=== PATIENT | male | born 1965 | race Caucasian/White ===

== ENCOUNTER 2021-11-29 16:27 | Outpatient (REF) | payer BC, SELFPAY ==
--- NOTE | ~2021-11-29 | XR_ITS ---
EXAMINATION: XR SHOULDER, LEFT CLINICAL INFORMATION: Pain. COMPARISON: None TECHNIQUE: AP external rotation, Grashey, scapular Y, and axillary views of the left shoulder. FINDINGS: The bones and soft tissues are normal. No fracture. Glenohumeral and acromioclavicular alignment is anatomic with normal joint space. No abnormal soft tissue calcifications. XR/XR shoulder LT min 2V IMPRESSION: Normal left shoulder.
== END 2021-11-29 16:28 | disposition home or self-care (01) ==
LOC: HO.XRAY 16:27
PROVIDERS: PCP Internal Medicine; Visit Provider Internal Medicine
DX: M25.512 Pain in left shoulder (principal)
CPT/HCPCS: 73030

== ENCOUNTER 2021-12-22 16:10 | Outpatient (REF) | payer BC, SELFPAY ==
--- NOTE | ~2021-12-22 | MR_ITS ---
EXAMINATION: MRI SHOULDER WITHOUT CONTRAST, LEFT CLINICAL INFORMATION: Left shoulder pain with decreased range of motion. COMPARISON: Left shoulder radiographs dated 11/29/2021. TECHNIQUE: Multisequence MR imaging of the left shoulder was obtained without contrast on a high-field strength scanner. FINDINGS: ROTATOR CUFF: Mild supraspinatus and infraspinatus tendinosis. Bursal surface fraying/partial tearing of the junctional fibers measuring approximately 1.5 x 1.3 cm (AP x ML). Subscapularis tendinosis with distal articular surface fraying/partial tearing measuring 1.6 cm in ML dimension. No full-thickness rotator cuff tendon tear. No muscle atrophy or fatty infiltration. BICEPS: Intact. CORACOACROMIAL ARCH: The undersurface of the acromion is curved with lateral downsloping. Xrco-hu-dogivcmq acromioclavicular osteoarthritis. Trace fluid and edema within the subacromial subdeltoid bursa consistent with mild bursitis. LABRUM/CAPSULE: No displaced labral tear. Mild thickening and edema of the anteroinferior joint capsule which can be seen in the setting of adhesive capsulitis. GLENOHUMERAL JOINT/MARROW: No acute osseous injury. Grossly intact articular cartilage. Small joint effusion. MR/MR shoulder LT wo con IMPRESSION: 1. Mild supraspinatus and infraspinatus tendinosis with bursal surface fraying/partial tearing of the junctional fibers. Subscapularis tendinosis with distal articular surface fraying/partial tearing. No full-thickness rotator cuff tendon tear. 2. Xppk-pk-reyencyt acromioclavicular osteoarthritis with lateral downsloping. 3. Mild subacromial subdeltoid bursitis. 4. Small glenohumeral joint effusion. 5. Mild thickening and edema of the anteroinferior joint capsule which can be seen in the setting of adhesive capsulitis.
== END 2021-12-22 16:11 | disposition home or self-care (01) ==
LOC: HO.MRI 16:10
PROVIDERS: Visit Provider Internal Medicine
DX: M25.512 Pain in left shoulder (principal)
CPT/HCPCS: 73221

== ENCOUNTER 2022-02-28 08:00 | Outpatient (RCR) | payer BC, SELFPAY | END 2022-03-05 09:28 | disposition home or self-care (01) | LOC: HO.PTCHIC 08:00 | PROVIDERS: PCP Internal Medicine; Visit Provider Internal Medicine | DX: M25.512 Pain in left shoulder (principal) | CPT/HCPCS: 97110; 97140; 97161 ==

== ENCOUNTER 2022-03-19 15:35 | Outpatient (REF) | payer BC, SELFPAY ==
[2022-03-19 16:47] LABS: Influenza A PCR NEGATIVE (Negative); Influenza B PCR NEGATIVE (Negative); Resp Syncy Virus RNA Qual PCR NEGATIVE (Negative); SARS COV2 PCR INHOUSE NEGATIVE (Negative)
== END 2022-03-19 15:36 | disposition home or self-care (01) ==
LOC: HO.LNP 15:35
PROVIDERS: Visit Provider Internal Medicine
DX: Z20.822 Contact with and (suspected) exposure to COVID-19 (principal); R05.9 Cough, unspecified
CPT/HCPCS: 0241U

== ENCOUNTER 2022-03-20 16:36 | Outpatient (REF) | payer BC, SELFPAY ==
--- NOTE | ~2022-03-20 | XR_ITS ---
EXAMINATION: XR CHEST CLINICAL INFORMATION: Cough COMPARISON: 05/14/2016 TECHNIQUE: 2 views of the chest were obtained. FINDINGS: Lungs are well expanded. Although there appears to be a small hazy opacity in the right upper lobe projecting over the right anterior third rib, there is a questionable similar abnormality on the remote comparison exam from 05/14/2016. Otherwise, lungs are unremarkable. No evidence of pulmonary mass or pleural effusion. Cardiac silhouette is normal in size. The hilar contours are normal. Multilevel osteophyte an/or enthesophyte formation of the thoracic spine. No suspicious bone lesions. XR/XR chest 2V IMPRESSION: There is an equivocal finding of minimal hazy opacity in the right upper lung, possibly artifactual. No overt pneumonia. Interestingly, there is a similar questionable abnormality on the remote comparison from 05/14/2016. If an unexplained cough persists, chest CT follow-up would be helpful for further evaluation.
== END 2022-03-20 16:37 | disposition home or self-care (01) ==
LOC: HO.XRAY 16:36
PROVIDERS: PCP Internal Medicine; Visit Provider Internal Medicine
DX: R05.9 Cough, unspecified (principal); R06.89 Other abnormalities of breathing; R06.2 Wheezing
CPT/HCPCS: 71046

== ENCOUNTER 2022-05-15 11:47 | Outpatient (REF) | payer BC, SELFPAY ==
[2022-05-15 13:38] LABS: MANUAL DIFF FLAG NO
[2022-05-15 13:43] LABS: Basophils Absolute Auto 0.1 X10*3/uL (0.0-0.2); Basophils Percent Auto 0.7 % (0-2); Eosinophils Absolute Auto 0.1 X10*3/uL (0.0-0.4); Eosinophils Percent Auto 0.8 % (0-4); Hematocrit 40.5 % (42.0-52.0); Hemoglobin 13.8 g/dl (14.0-18.0); Imm Gran Abs Auto 0.03 X10*3/uL (0.00-0.03); Imm Gran Pct Auto 0.4 % (0.0-0.4); Lymphocytes Absolute Auto 1.9 X10*3/uL (1.2-4.9); Lymphocytes Percent Auto 25.7 % (20-40); Mean Corpuscular HGB Conc 34.1 g/dl (31.0-36.0); Mean Corpuscular Hemoglobin 30.3 pg (27.0-33.0); Mean Platelet Volume 9.7 fL (9.4-12.4); Monocytes Absolute Auto 0.5 X10*3/uL (0.1-1.2); Monocytes Percent Auto 6.6 % (2-11); Neutrophils Percent Auto 65.8 % (45-73); Platelet Count 257 X10*3/uL (160-400); Red Blood Count 4.55 X10*6/uL (4.60-5.80); Red Cell Distribution Width 12.5 % (11.0-16.0); White Blood Count 7.5 X10*3/uL (4.8-10.8)
[2022-05-15 13:57] LABS: Appearance Urine Clear; Color Urine Yellow; Glucose Urine UA Negative (Negative); Leukocyte Esterase Urine Negative (Negative); Nitrite Urine Negative (Negative); PH 6.5 (5.0-9.0); Specific Gravity - Urine 1.015 (1.005-1.025); Urine Blood Negative (Negative); Urine Ketones Negative (Negative); Urine Protein Negative (Neg-Trace)
[2022-05-15 14:27] LABS: Alanine Aminotransferase 25 U/L (0-40); Albumin Level 4.4 g/dL (3.5-5.0); Alkaline Phosphatase 66 U/L (39-117); Anion Gap 19 (12-20); Aspartate Amino Transferase 23 U/L (5-37); Bilirubin Total 0.7 mg/dL (0.0-1.0); Blood Urea Nitrogen 14 mg/dL (9-16); C Reactive Protein 0.27 mg/dL (< or = 0.50); Calcium 9.7 mg/dL (8.4-10.2); Carbon Dioxide 23 mmol/L (22-29); Chloride 104 mmol/L (96-108); Cholesterol 194 mg/dL; Estimated Glomerular Filt Rate > 60; Glucose Fasting 87 mg/dL (60-99); HDL Cholesterol 53 mg/dL; LDL Cholesterol Calculated 131 mg/dl; Potassium 4.5 mmol/L (3.3-5.1); Sodium 141 mmol/L (135-145); Total Protein 7.4 g/dL (6.5-8.0); Triglycerides 50 mg/dL
[2022-05-15 14:44] LABS: Prostate Specific Antigen Scr 15.12 ng/mL (<0.05-4.0)
== END 2022-05-15 11:48 | disposition home or self-care (01) ==
LOC: HO.10HDL 11:47
PROVIDERS: Visit Provider Internal Medicine
DX: Z00.00 Encounter for general adult medical examination without abnormal findings (principal); Z12.5 Encounter for screening for malignant neoplasm of prostate
CPT/HCPCS: 36415; 80053; 80061; 81003; 84153; 85025; 86140

== ENCOUNTER 2022-05-17 15:45 | Outpatient (REF) | payer BC, SELFPAY ==
[2022-05-17 18:21] LABS: PSA,Total (Free>4and<10) 14.69 ng/mL (0.00-4.00)
== END 2022-05-17 15:46 | disposition home or self-care (01) ==
LOC: HO.LAB 15:45
PROVIDERS: PCP Internal Medicine; Visit Provider Internal Medicine
DX: R97.20 Elevated prostate specific antigen [PSA] (principal); Z12.5 Encounter for screening for malignant neoplasm of prostate
CPT/HCPCS: 36415; 84153

== ENCOUNTER → 2022-11-14 15:10 | Outpatient (REF) | payer BC, SELFPAY ==
--- NOTE | 2022-11-14 15:17 | ECG_ITS ---
Test Reason : preop Blood Pressure : / mmHG Vent. Rate : 063 BPM Atrial Rate : 063 BPM P-R Int : 176 ms QRS Dur : 090 ms QT Int : 412 ms P-R-T Axes : 004 007 009 degrees QTc Int : 421 ms Normal sinus rhythm Normal ECG No previous ECGs available Referred By: Abelino Stoll Electronically Signed By:Edwin Ruiz
== END ==
LOC: HO.CARD 15:10
PROVIDERS: PCP Internal Medicine; Visit Provider Internal Medicine
DX: Z01.810 Encounter for preprocedural cardiovascular examination (principal)
CPT/HCPCS: 93005

== ENCOUNTER → 2022-11-14 15:17 | Outpatient (BNV) | payer BC, SELFPAY | PROVIDERS: PCP Internal Medicine; Visit Provider Internal Medicine Cardiovascular Disease | DX: Z01.818 Encounter for other preprocedural examination (principal) | CPT/HCPCS: 93010 ==

== ENCOUNTER 2023-04-30 07:17 | Day surgery (SDC) | payer BC, SELFPAY ==
[2023-04-26 14:13] VITALS: BMI 31.0
--- NOTE | 2023-04-29 08:25 | P.CONAN_ITS ---
Documented by User: Tricia Lynne NP 04/29/23 08:25 HPI - Anesthesia Eval Consult details Narrative: 57yo M for Upper Endoscopy and Colonoscopy [facility] Past Medical History Medical History Prostate cancer Asthma GERD (gastroesophageal reflux disease) Surgical History Surgical History History of facial surgery Hx of prostatectomy H/O colonoscopy Social History Social History Household Members: Spouse Patient Tobacco Use Status: Never used Tobacco Use of substances other than those prescribed or required for medical reasons: No Are you DNR?: No Advance Directives: No Advance Directives Information Provided: Yes Meds Allergies Allergy/AdvReac Type Severity Reaction Status Date / Time Seasonal Allergies Allergy Intermediate Itchy Eyes Verified 04/26/23 14:16 Home Medications Medication Instructions Recorded Confirmed Last Taken Type fluticasone 100 mcg-salmeterol 50 1 ea inhalation BID 04/26/23 04/26/23 Unknown History mcg/dose blistr powdr for inhalation (Wixela Inhub) loratadine 10 mg tablet (Claritin) 10 mg PO DAILY 04/26/23 04/26/23 Unknown History oxybutynin chloride 5 mg tablet 5 mg PO BEDTIME 04/26/23 04/26/23 Unknown History tadalafil 5 mg tablet 5 mg PO DAILY 04/26/23 04/26/23 Unknown History Exam Height,Weight and Vital Signs: Height 5 ft 9.5 in Weight 96.615 kg Assessment and Plan Assessment Anesthesia Assessment: Chart Reviewed Documented by User: Starla Araujo MD 04/30/23 09:14 [facility] Active Problems Active Problems: Asthma. Uses inhaler daily GERD. Uses otc meds daily. Controls symptoms Tadalafil- last use 4 days ago H/o heme positive stool Past Medical History Medical History Prostate cancer Asthma GERD (gastroesophageal reflux disease) Family History Family history of problems with anesthesia: No Surgical History Surgical History History of facial surgery Hx of prostatectomy H/O colonoscopy History of Problems with Anesthesia: No Social History Social History Household Members: Spouse Patient Tobacco Use Status: Never used Tobacco Use of substances other than those prescribed or required for medical reasons: No Are you DNR?: No Advance Directives: No Advance Directives Information Provided: Yes Meds Allergies Allergy/AdvReac Type Severity Reaction Status Date / Time Seasonal Allergies Allergy Intermediate Itchy Eyes Verified 04/26/23 14:16 Home Medications Medication Instructions Recorded Confirmed Last Taken Type fluticasone 100 mcg-salmeterol 50 1 ea inhalation BID 04/26/23 04/26/23 Unknown History mcg/dose blistr powdr for inhalation (Nicholas Thompson) loratadine 10 mg tablet (Claritin) 10 mg PO DAILY 04/26/23 04/26/23 Unknown History oxybutynin chloride 5 mg tablet 5 mg PO BEDTIME 04/26/23 04/26/23 Unknown History tadalafil 5 mg tablet 5 mg PO DAILY 04/26/23 04/26/23 Unknown History Exam Height,Weight and Vital Signs: Height 5 ft 9.5 in Weight 96.615 kg Vital Signs Temp Pulse Resp BP Pulse Ox O2 Del Method 04/30/23 08:24 99.0 F 79 16 131/83 95 Room Air Narrative Narrative: 12 lead ekg 11/2022: NSR. 63 Airway Mallampati Class: II TM Dist: >3cm Neck ROM: Full Loose/Missing/Broken Teeth: No (Denies broken, loose, missing teeth) Heart: RRR Lungs: CTAB Assessment and Plan Assessment Anesthesia Assessment: Anesthesia Plan Discussed Final Anesthetic Review Family History of Problems with Anesthesia: No History of Problems with Anesthesia: No NPO: Yes ASA Class: II Final Preanesthetic Review: No Changes in Pt Med Stat, Meds/Allgs Chart Reviewed, Consent Obtained/Reviewed and Anes Risks/Benef Reviewed Patient Risk: Low Procedure Risk: Low Assessment/Block/Sedation in SS: Assess/Block/Sedation-SS Anesthetic Plan Anesthetic Plan: TIVA Disposition: Standard PACU
--- OUTSIDE RECORDS SUMMARY | 2023-04-30 07:20 | XMS_ITS | Patient Health Record ---
Author Name Unknown Organization [facility] Address [address] [place] [address] Care Team Providers Care Rainbow Trout Farm Manager Name Role Phone Abelino Stoll MD Primary Care Provider Micah Hull Jr Unavailable ALLERGIES Allergen (clinical drug ingredient) Drug/Non Drug Allergy documented on EMR Reaction Allergy Type Onset Date Status seasonal (uncoded) Unknown Allergy A ctive REASON FOR REFERRAL No Information MEDICATIONS Medication SIG (Take, Route, Frequency, Duration) Notes Start Date End Date Status MiraLax (colon prep) 17 GM/SCOOP mixed with Gatorade or Crystal Light Orally begin at 5:00 p.m. the day before the procedure for 1 day 03/25/2023 Active Tadalafil 5 MG Oral for 30 Act isa Advair Diskus 250-50 MCG/DOSE 1 puff Inhalation Twice a day/PRN Active Claritin 10 MG 1 tablet Orally Once a day for 30 day(s) Active IMMUNIZATIONS Vaccine Route Administration Date Status Comme nts Influenza Unknown 03/08/2023 Administered SOCIAL HISTORY Sex Assigned At : Social History Observation Description Sex Assigned At Unknown Alcohol Screen Question Answer Notes Did you have a drink contain ing alcohol in the past year? Yes How often did you have a dri nk containing alcohol in the past year? 4 or more times a week (4 points) How many drinks did you have on a typical day when you were drinking in the past year? 3 or 4 drinks (1 point) How often did you have 6 or more drinks on one occasion in the past year? Never (0 point) Points 5 Interpretation Positive PROBLEMS Problem Type ICD Code Onset Dates Problem Status W/U Status Risk SNOMED Code Notes Problem Heme positive stool (R19.5) Active confirmed 62315589 Problem Change in bowel movement (R19.8) Active confirmed 53246975 Problem Gastroesophageal reflux disease, unspecified whether esophagitis present (K21.9) Active confirmed 850711333 Encounters Encounter Location Date Provider Diagnosis [facility] Outpatient [address] [place] [phone] 04/30/2023 Micah Baxter Jr [facility] [address] [place] [phone] 06/06/2022 Micah Baxter Jr [facility] [address] [place] [phone] 08/24/2022 Micah Baxter Jr [facility] [address] [place] [phone] 03/25/2023 Micah Baxter Jr Heme positive stool R19.5 ; Change in bowel movement R19.8 and Gastroesophageal reflux disease, unspecified whether esophagitis present K21.9 [facility] [address] [place] [phone] 05/18/2022 Micah Baxter Jr [facility] [address] [place] [phone] 05/31/2022 Micah Baxter Jr [facility] [address] [place] [phone] 06/06/2022 Micah Baxter Jr ASSESSMENTS Encounter Date Diagnosis Assessment Notes Treatment Notes Treatment Clinical Notes 03/25/2023 Heme positive stool (ICD-10 - R19.5) Endoscopy material was printed 03/25/2023 Change in bowel movement (ICD-10 - R19.8) 03/25/2023 Gastroesophageal ref lux disease, unspecified whether esophagitis present (ICD-10 - K21.9) PLAN OF TREATMENT Future Test Test Name Order Date COLONOSCOPY 08/05/2014 UPPER GI ENDOSCOPY 03/25/2023 COLONOSCOPY 03/25/2023 Next Appt Details Provider Name:Micah shipley Jr, 04/30/2023 11:20:00 AM, [address] [place] [address] , [place], [place], [phone], Insurance Providers Payer Name Payer Address Payer Phone Subscriber Number Group Number Insured Name Patient Relationship to Insured Coverage Start Date Coverage End Date [facility] [address] [place], [place] [id number] [phone] [id number] AWA JACOBS Self - patient is the insured MEDICAL (GENERAL) HISTORY Medical History History ICD Code Asthma Gastroesophageal reflux disease Colonoscopy 10/06/14, hyperpla stic polyps, five-year followup for family history. Prostate cancer Surgical History Surgery Date(Month/Year) Repair of facial bone fracture Prostatectomy 12/2022
[2023-04-30 08:21] VITALS: BMI 29.9
[2023-04-30 08:24] VITALS: BP 131/83; PULSE 79; RESP 16; TEMP 37.2; O2SAT 95
[2023-04-30] MEDS: Lactated Ringers 1,000 ML 100 ML IVCONT (08:37)
--- NOTE | 2023-04-30 09:10 | MHC.SHP ---
Pre-Procedural Eval Section A Date of Service: 04/30/23 Section B Chief Complaint: Other specified symptoms and signs involving the d Details of Present Illness: see H&P no changes Relevant Family History (Specify if Yes): No Relevant Social History: None Present Medications: see Short Stay Collaborative assessment Medical History: No relevant PMH History of Previous Operations: No relevant previous surgery Allergies: Allergies Allergy/AdvReac Type Severity Reaction Status Date / Time Seasonal Allergies Allergy Intermediate Itchy Eyes Verified 04/26/23 14:16 Review of Systems Sugical H&P ROS: Negative: Constitution, Cardiovascular, Respiratory, Neurological, Psychiatric, Hem-Onc, Allergic/Immunologic, Gastrointestinal, Genitourinary, Musculoskeletal, Integumentary, Endocrine and Eyes/Ears/Nose/Throat Exam Surgical H&P Exam: Normal: HEENT, Normal: Heart, Normal: Lungs, Normal: Extremities, Normal: Abdomen, Normal: Skin and Normal: Neurological Plan Diagnosis/Plan: Unchanged I have reviewed the history and physical and performed a pertinent physical examination on my patient. No changes have occurred unless specified. Time Spent With Patient Time: Total time managing care of this patient today ____ minutes.
[2023-04-30 09:52] VITALS: BP 103/72; PULSE 80; RESP 12; TEMP 36.3; O2SAT 97
[2023-04-30 10:07] VITALS: BP 112/85; PULSE 69; RESP 12; TEMP 36.3; O2SAT 97
--- NOTE | 2023-04-30 10:12 | OP_ITS ---
DATE OF SERVICE: 04/30/2023 SURGEON: Micah Baxter MD INDICATIONS: Gastroesophageal reflux disease, change in bowels, and heme-positive stool. PREOPERATIVE DIAGNOSIS: POSTOPERATIVE DIAGNOSIS: PROCEDURE PERFORMED: ESTIMATED BLOOD LOSS: COMPLICATIONS: ANESTHESIA: Monitored anesthesia care. ASSISTANTS: SPECIMENS: PROCEDURES PERFORMED: Upper endoscopy with biopsy, colonoscopy to the terminal ileum. DESCRIPTION OF PROCEDURE: A history and physical were performed. The risks and benefits of the procedure were explained to the patient. Informed consent was obtained. The patient was placed in the left lateral decubitus position. The Olympus video gastroscope was introduced into the esophagus, stomach, and duodenum. Examination was performed, and the scope was removed. He tolerated the procedure well and was repositioned for colonoscopy. A digital rectal exam was performed and was found to be normal. The Olympus pediatric video colonoscope was introduced into the rectum and advanced to the cecum. The cecum was identified by transillumination, palpation, and identification of ileocecal valve. Examination was performed, and the scope was removed. He tolerated both procedures well, and was returned to recovery in stable condition. FINDINGS: Upper endoscopy: 1. Esophagus. There was an approximately 2 cm area of possible Jacinto's esophagus extending from the EG junction at 39 cm to 37 cm. There were no raised lesions or ulcerated areas. Biopsies were obtained from 39 and 37 cm. 2. Stomach: Showed no evidence of masses, ulcers, or polyps. Antral biopsies were obtained to evaluate for H. pylori. 3. Duodenum, the bulb and 2nd portion were normal. Colonoscopy: The terminal ileum was examined and appeared normal. The visualized colonic mucosa was normal. The quality of the prep was good. There were no polyps identified. There was mild sigmoid diverticulosis. Retroflexed examination showed some moderate-sized internal hemorrhoids. IMPRESSION: 1. Gastroesophageal reflux disease, rule out Jacinto's esophagus. 2. Normal colonoscopy. RECOMMENDATIONS: 1. Follow up the biopsy results. 2. Screening colonoscopy is recommended in 10 years for average risk individuals. MD YAAKOV Hong/TRAVIS / [phone]
== END 2023-04-30 10:30 | disposition home or self-care (01) ==
PROVIDERS: PCP Internal Medicine; Visit Provider Internal Medicine Gastroenterology
PROC: (CPT 43239; principal; 2023-04-30 09:10)
DX: K21.9 Gastro-esophageal reflux disease without esophagitis (principal); K57.30 Diverticulosis of large intestine without perforation or abscess without bleeding; K64.8 Other hemorrhoids; Z83.719 Family history of colon polyps, unspecified; R19.5 Other fecal abnormalities; R19.8 Other specified symptoms and signs involving the digestive system and abdomen
CPT/HCPCS: 43239; 45378; 88305; 88313; 88342; J2405; J2704; J3010

== ENCOUNTER 2024-09-14 09:30 | Outpatient (AMB) | payer BC, SELFPAY ==
--- NOTE | 2024-09-14 09:33 | A.OFFPC_ITS ---
Vital Signs 09/14/24 09:37 Height 5 ft 11 in Weight 101.151 kg BMI 31.1 BP 138/86 Respiration 16 Pulse 74 Pulse Source Pulse Oximeter Temp 98.2 F Temp Source Temporal Artery Scan Pulse Oximetry (%) 97 Oxygen Delivery Method Room Air Intake Visit Reasons: rx refill Absorption And Adsorption Engineer Required: No Accompanied by: Self / Same As Patient Allergies Seasonal Allergies Allergy (Intermediate, Verified 09/14/24 09:33) Itchy Eyes Medication List - Last Reconciled 09/14/24 by NERY Collado albuterol sulfate 90 mcg/actuation 1 inh inhalation QID PRN fluticasone propion-salmeterol 100-50 mcg/dose (Wixela Inhub) 1 ea inhalation BID loratadine (Claritin) 10 mg PO DAILY tadalafil 5 mg PO DAILY HPI HPI Comments 2 History of Present Illness Details 59-year-old male with history of prostat e cancer, asthma, GERD presents to the office today for management of chronic conditions and to establish care. Prostate cancer- s/p total prostatectomy 2022. Following with [facility] 4 times yearly. Last 0.03. Interductal carcinoma. Request records Asthma- stable on wixela inhaler. No recent exacerbation. Rare albuterol use. GERD- controlled. Takes omeprazole Hyperlipidemia-last LDL 131. Not on statin Concerns: None Health maintenance: Last screening colonoscopy 04/2023, 10 year follow-up. Dr. Sahil REGAN-Dana-Farber following ROS: General: No fevers, malaise, unintentional weight loss HEENT: No blurred vision, diplopia. No sore throat, nasal congestion, rhinorrhea, sinus pain, ear pain Cardiovascular: No chest pain, palpitations, or leg edema Respiratory: No shortness of breath, wheezing, cough GI: No abdominal pain, nausea, vomiting, diarrhea, constipation, melena, hematochezia : No dysuria, hematuria, increased urinary frequency, decreased urinary output MSK: No myalgia, back pain Neuro: No headaches, weakness, paresthesias Skin: No rashes or lesions EXAM: Constitutional - Awake and Alert, No apparent distress Eyes - PERRL Cardiovascular - S1S2, RRR, No edema Respiratory - Normal lung expansion, Normal respiratory effort, No respiratory distress, CTA bilaterally Extremities - no calf tenderness bilaterally, no swelling Skin - Warm/Dry Neurological - Alert & oriented Psychological - Appropriate affect PFSH Medical History (Updated 09/14/24 @ 09:55 by NERY Collado) Hyperlipidemia Prostate cancer Asthma GERD (gastroesophageal reflux disease) Surgical History (Updated 09/11/24 @ 15:42 by Jocy Tapia) History of facial surgery Hx of prostatectomy H/O colonoscopy (~04/30/23) Social History Household Members: Spouse Patient Tobacco Use Status: Never used Tobacco Questionnaire PHQ-9 Over the last 2 weeks, how often have you been bothered by any of the following problems? 1. Little interest or pleasure in doing things: not at all 2. Feeling down, depressed, or hopeless: not at all 3. Trouble falling or staying asleep, or sleeping too much: more than half the days 4. Feeling tired or having little energy: several days 5. Poor appetite or overeating: more than half the days 6. Feeling bad about yourself - or that you are a failure or have let yourself or your family down: not at all 7. Trouble concentrating on things, such as reading the newspaper or watching television: not at all 8. Moving or speaking so slowly that other people could have noticed. Or the opposite - being so fidgety or restless that you have been moving around a lot more than usual: not at all 9. Thoughts that you would be better off or of hurting yourself in some way: not at all Total score: 5 Source: Developed by Drs. Kenny Soriano, Sheree Randle, Hernan Novak and colleagues, with an educational blaire from [employer]. Thrive Questionnaire Date Thrive assessed: 09/14/24 I am a: Patient What is your living situation today?: I have a steady place to live Within the past 12 months, did the food you bought not last and you didn't have the money to get more?: Never true Within the past 12 months, did you worry whether your food would run out before you got money to buy more?: Never true Do you have trouble paying for medicines?: No Do you have trouble getting transportation to medical appointments?: No Do you have trouble paying your heating and electricity bill?: No Do you have trouble taking care of your child, family member or friend?: No Do you have trouble with day-to-day activities such as bathing, preparing meals, shopping, managing finances, etc.?: No Are you currently unemployed and looking for a job?: No Are you interested in more education?: No Please select the resources that you would like help with: None THRIVE Score: 0 BALDEMAR-7 AMB Questionnaire BALDEMAR-7 Date BALDEMAR - 7 assessed: 09/14/24 Feeling nervous, anxious, or on edge: 0 = Not at all Not being able to stop or control worryin = Not at all Worrying too much about different things: 0 = Not at all Trouble relaxin = Not at all Being so restless that it is hard to sit still: 0 = Not at all Becoming easily annoyed or irritable: 0 = Not at all Feeling afraid as if something awful might happen: 0 = Not at all Total BALDEMAR-7 score (0-4 normal; 5-9 mild; 10-14 moderate; 15-21 severe): 0 Source: Developed by Drs. Kenny Soriano, Sheree Randle, Hernan Novak and colleagues, with an educational blaire from [employer]. Physical exam (Primary Care) Vital Signs: Last Vital Signs Temp 98.2 F 09/14/24 09:37 Pulse 74 09/14/24 09:37 Resp 16 09/14/24 09:37 BP 138/86 09/14/24 09:37 Pulse Ox 97 09/14/24 09:37 Oxygen Delivery Method Room Air 09/14/24 09:37 BMI result Body Mass Index 31.1 Tobacco/Smoking Status: Tobacco use Status Patient Tobacco Use Status Never used Tobacco 09/14/24 09:40 PHQ-9: PHQ-9 Score PHQ-9: Total score 5 09/14/24 10:00 Thrive Assessment: Date of Thrive Assessment Date Thrive assessed 09/14/24 09/14/24 10:00 Coding Level of Care Code New Pt Level 4 (35525) Complex EM visit Add On G2211 Diagnoses Asthma J45.909 Prostate cancer C61 Hyperlipidemia E78.5 GERD (gastroesophageal reflux disease) K21.9 Assessment & Plan Assessment & Plan (1) Asthma: Code(s): J45.909 - Unspecified asthma, uncomplicated Category: Medical Plan: Controlled. Continue Wixela, albuterol p.r.n. (2) Prostate cancer: Code(s): C61 - Malignant neoplasm of prostate Category: Medical Plan: Records to be requested from [facility]. Appears to be in remission with last PSA nearly undetectable. Continue following with Oncology as scheduled (3) Hyperlipidemia: Code(s): E78.5 - Hyperlipidemia, unspecified Category: Medical Plan: Lipid panel ordered. Diet low in saturated fat and highly processed foods recommended (4) GERD (gastroesophageal reflux disease): Code(s): K21.9 - Gastro-esophageal reflux disease without esophagitis Category: Medical Plan: Stable. Continue omeprazole Plan Follow-up in 1 year for annual physical exam. Labs to be completed as below. Continue medications as prescribed. Orders: Orders Basic Metabolic Panel Today C61 - Malignant neoplasm of prostate, E78.5 - Hyperlipidemia, unspecified, J45.909 - Unspecified asthma, uncomplicated, K21.9 - Gastro-esophageal reflux disease without esophagitis Hemoglobin A1c Today C61 - Malignant neoplasm of prostate, E78.5 - Hyperlipidemia, unspecified, J45.909 - Unspecified asthma, uncomplicated, K21.9 - Gastro-esophageal reflux disease without esophagitis Lipid Panel Today C61 - Malignant neoplasm of prostate, E78.5 - Hyperlipidemia, unspecified, J45.909 - Unspecified asthma, uncomplicated, K21.9 - Gastro- esophageal reflux disease without esophagitis Liver Panel Today C61 - Malignant neoplasm of prostate, E78.5 - Hyperlipidemia, unspecified, J45.909 - Unspecified asthma, uncomplicated, K21.9 - Gastro- esophageal reflux disease without esophagitis Medications: New tadalafil 5 mg PO DAILY 14 tabs 5RF albuterol sulfate 90 mcg/actuation 1 inh inhalation QID PRN 8.5 grams 0RF shortness of breath or wheezing Refilled fluticasone propion-salmeterol 100-50 mcg/dose (Wixela Inhub) 1 ea inhalation BID 180 ea 2RF
[2024-09-14 09:37] VITALS: BP 138/86; PULSE 74; RESP 16; TEMP 36.8; O2SAT 97; BMI 31.1
--- OUTSIDE RECORDS SUMMARY | 2024-09-14 10:05 | XMS_ITS ---
Author Organization [facility] Address [address] [place] [address] Care Team Providers Care Cook Station Name Role Phone Abelino Stoll MD Primary Care Provider Unavaila Micah Smalls Jr REASON FOR VISIT Patient presents today for barretts esophagus Encounters Encounter Location Date Provider Diagnosis [facility] [address] [place] [id number] 09/18/2023 Micah Baxter Jr Plan Of Treatment Next Appt Details Provider Name:Micah shipley Jr, 01/04/2025 09:00:00 AM, [address] [place] [address], [address], [place], [address], Progress Notes * ZULEIKAAMY AWADOB:1965 (59 yo M)Acc No.[id number]:09/18/2023 Progress Notes Patient:?REYNALDO AWA Provider:?Micha Baxter MD :1965???Age:58 Y???Sex:Male Emmett e:09/18/2023 Address:[address] [place] [address] [phone] Pcp:Abelino Stoll MD Subjective: * Chief Complaints: * ???1. Patient presents today for barretts esophagus. * Medical History:? Objective: * Vitals:? Assessment: Plan: * Treatment: * * The named appointment provid er may or may not be the originator of this progress note, and it is not deemed complete until electronically signed by the appointment provider. Sign off status: Pending * Provider:?Micah Baxter MD Date:?0 09/18/2023 Generated for Natalya amaral/Neva/Jjitting on:?09/14/2024 10:05 AM EDT
== END 2024-09-14 10:02 | disposition home or self-care (01) ==
LOC: HO.HMCHD 09:30
PROVIDERS: PCP Internal Medicine; Visit Provider Physician Assistant
DX: J45.909 Unspecified asthma, uncomplicated (principal); C61 Malignant neoplasm of prostate; E78.5 Hyperlipidemia, unspecified; K21.9 Gastro-esophageal reflux disease without esophagitis

== ENCOUNTER 2024-09-14 10:06 | Outpatient (REF) | payer BC, SELFPAY ==
[2024-09-14 13:42] LABS: Estimated Average Glucose 103 mg/dL; Hemoglobin A1C 119.2935 umol/L; Hemoglobin A1c % 5.2 % (<6.0); Total Hemoglobin (HGBA1C) 3523.7419 umol/L
[2024-09-14 13:55] LABS: Alanine Aminotransferase 30 U/L (0-40); Albumin Level 4.4 g/dL (3.5-5.0); Alkaline Phosphatase 73 U/L (39-117); Anion Gap 11 (12-20); Aspartate Amino Transferase 24 U/L (5-37); Bilirubin Direct 0.2 mg/dL (0.0-0.5); Bilirubin Total 0.5 mg/dL (0.0-1.0); Blood Urea Nitrogen 13 mg/dL (9-16); Calcium 9.4 mg/dL (8.4-10.2); Carbon Dioxide 29 mmol/L (22-29); Chloride 105 mmol/L (96-108); Cholesterol 171 mg/dL (<200); Estimated Glomerular Filt Rate > 60; Glucose Random 107 mg/dL (60-115); HDL Cholesterol 54 mg/dL (>40); LDL Cholesterol Calculated 103 mg/dL (<100); Potassium 4.5 mmol/L (3.3-5.1); Sodium 140 mmol/L (135-145); Total Protein 7.5 g/dL (6.5-8.0); Triglycerides 73 mg/dL (<150)
== END 2024-09-14 10:07 | disposition home or self-care (01) ==
LOC: HO.10HDL 10:06
PROVIDERS: Visit Provider Physician Assistant
DX: C61 Malignant neoplasm of prostate (principal); K21.9 Gastro-esophageal reflux disease without esophagitis; J45.909 Unspecified asthma, uncomplicated; E78.5 Hyperlipidemia, unspecified; Z13.1 Encounter for screening for diabetes mellitus
CPT/HCPCS: 36415; 80048; 80061; 80076; 83036

== ENCOUNTER 2024-12-16 15:01 | Outpatient (AMB) | payer BC, SELFPAY ==
--- OUTSIDE RECORDS SUMMARY | 2023-09-18 06:40 | XMS_ITS ---
Author Organization [facility] Address [address] [place] [address] Care Team Providers Care Cupola Patcher Helper Name Role Phone Jerman (RETIRED) Abelino BOATENG Primary Care Provide r Micah Hernandez Jr [phone] REASON FOR VISIT Patient presents today for barretts esophagus Encounters Encounter Location Date Provider Diagnosis [facility] [address] [place] [address] 09/18/2023 Micah Baxter Jr Plan Of Treatment Next Appt Details Provider Name:Micah shipley Jr, 01/04/2025 09:00:00 AM, [address] [place] [address], [address], [place], [address], Progress Notes * AWA JACOBSDOB:1965 (59 yo M)Acc No.[id number]:09/18/2023 Progress Notes Patient: AWA RUSSELL Provider: Yumi Baxter MD :1965 A ge:58 Y S ex:Male Date:09/18/2023 Address:[address] [place] [address] [id number] Pcp:Abelino Stoll (RETIRED )MD Subjective: * Chief [...] provider. Sign off status: Pending * Provider: Yumi Baxter MD Date: 0 09/18/2023 Generated for Natalya amaral/Neva/Mateus on: 0 12/16/2024 06:07 PM EDT
--- NOTE | 2024-12-16 15:09 | A.OFFPC_ITS ---
Vital Signs 12/16/24 15:14 Height 5 ft 11 in Weight 99.337 kg BMI 30.5 BP 114/86 Respiration 16 Pulse 82 Pulse Source Pulse Oximeter Temp 97.8 F Temp Source Temporal Artery Scan Pulse Oximetry (%) 96 Oxygen Delivery Method Room Air Intake Visit Reasons: Eye complaints General Passenger Agent Required: No Accompanied by: Self / Same As Patient Allergies Seasonal Allergies Allergy (Intermediate, Verified 12/16/24 15:09) Itchy Eyes Medication List - Last Reconciled 12/16/24 by NERY Collado albuterol sulfate 90 mcg/actuation 1 inh inhalation QID PRN fluticasone propion-salmeterol 100-50 mcg/dose (Wixela Inhub) 1 ea inhalation BID loratadine (Claritin) 10 mg PO DAILY sildenafil 100 mg PO DAILY PRN HPI HPI Comments History of Present Illness Details 59-year-old male with history of prostat e cancer, asthma, GERD presents to the office today for management of evaluation accompanied by his Kimberley. Prostate cancer- s/p total prostatectomy 2022. [facility] Last [facility]. Interductal carcinoma. Asthma- stable on wixela inhaler. No recent exacerbation. Rare albuterol use. GERD- controlled. Takes omeprazole Hyperlipidemia-last LDL 106. Not on statin Concerns: About 2 w ago experienced an episode where his eyes were looking in different directions , seeing things in two different barrientos . When covering each of the vision in the contralateral eye was normal. Unclear if there was actually central vision loss. No peripheral vision loss. When walking he states he had to cover one of his eyes. Reports the episode lasted about 5-6 minutes and has not recurred. This was the initial episode. He denies any blurred vision, diplopia, vision loss, pain with EOM. Denies any loss of depth perception. No other focal deficits. No hx CVA or known ROS: General: No fevers, malaise, unintentional weight loss HEENT: see hpi Cardiovascular: No chest pain, palpitations, or leg edema Respiratory: No shortness of breath, wheezing, cough Neuro: No headaches, weakness, paresthesias Skin: No rashes or lesions EXAM: Constitutional - Awake and Alert, No apparent distress Eyes - PERRLA. Lids symmetric, no drooping or swelling. Sclera anticteric, conjunctiva clear. EOMs in tact. Fundoscopic exam- cup to disc ratio appears normal, normal appearing pattern of retinal vessels, no hemorrhage or floaters Cardiovascular - S1S2, RRR, No edema Respiratory - Normal lung expansion, Normal respiratory effort, No respiratory distress, CTA bilaterally Extremities - no calf tenderness bilaterally, no swelling Skin - Warm/Dry Neurological - Alert & oriented x3 Psychological - Appropriate affect PFSH Medical History (Updated 12/16/24 @ 21:24 by NERY Collado) Hyperlipidemia Prostate cancer Asthma GERD (gastroesophageal reflux disease) Surgical History (Updated 09/11/24 @ 15:42 by Jocy Tapia) History of facial surgery Hx of prostatectomy H/O colonoscopy (~04/30/23) Social History Household Members: Spouse Patient Tobacco Use Status: Never used Tobacco Questionnaire Thrive Questionnaire Date Thrive assessed: 09/14/24 BALDEMAR-7 AMB Questionnaire BALDEMAR-7 Date BALDEMAR - 7 assessed: 09/14/24 Source: Developed by Drs. Kenny Soriano, Sheree Randle, Hernan Novak and colleagues, with an educational blaire from [employer]. Physical exam (Primary Care) Vital Signs: Last Vital Signs Temp 97.8 F 12/16/24 15:14 Pulse 82 12/16/24 15:14 Resp 16 12/16/24 15:14 BP 114/86 12/16/24 15:14 Pulse Ox 96 12/16/24 15:14 Oxygen Delivery Method Room Air 12/16/24 15:14 BMI result Body Mass Index 30.5 Tobacco/Smoking Status: Tobacco use Status Patient Tobacco Use Status Never used Tobacco 12/16/24 15:09 Thrive Assessment: Date of Thrive Assessment Date Thrive assessed 09/14/24 12/16/24 15:09 Coding Level of Care Code Est Pt Level 4 (95454) Complex EM visit Add On G2211 Diagnoses Change in vision H53.9 Hyperlipidemia E78.5 Assessment & Plan Assessment & Plan (1) Change in vision: Code(s): H53.9 - Unspecified visual disturbance Category: Medical Plan: No ongoing symptoms. Etiology of symptoms unclear. Given clinical history, appears consistent with sudden onset strabismus in adult with binocular vision disruption. Possibly hemianopsia, but unclear if there was true visual field loss based on pt history. EOMs and visual barrientos in tact on exam. Limited fundoscopic exam without any obvious abnormality. Recommend urgent evaluation with ophthamologist- advised to contact his provider at [facility] and will fax note. MRI brain ordered to evaluate for any cva, masses, or neurological disorder that could have resulted in symptom onset. Will check tsh/free t4 for thyroid eye disease. Referral is placed to neurology. Discussed possibility of TIA. Advised taking baby aspirin and initiating statin (last LDL 106). Pt advised to present to the ED immediately for any recurrence of symptoms. (2) Hyperlipidemia: Code(s): E78.5 - Hyperlipidemia, unspecified Category: Medical Plan: as above Plan Follow up pending results and as scheduled. Orders: Orders MR head/brain wo con Today H50.9 - Unspecified strabismus, H53.47 - Heteronymous bilateral field defects, H53.9 - Unspecified visual disturbance TSH reflex Free T4 Today H50.9 - Unspecified strabismus, H53.9 - Unspecified visual disturbance Referrals Neurology Referral H50.9 - Unspecified strabismus, H53.9 - Unspecified visual disturbance Medications: New atorvastatin (Lipitor) 10 mg PO DAILY 90 tabs 0RF Patient Instructions: MRI ordered and referral to neurology placed- [phone] Contact ophthalmology at [facility] for evaluation of vision changes- strabimus, BVD, ?hemianopsia Should this recur, please go to the ER immediately
[2024-12-16 15:14] VITALS: BP 114/86; PULSE 82; RESP 16; TEMP 36.6; O2SAT 96; BMI 30.5
--- OUTSIDE RECORDS SUMMARY | 2024-12-16 18:08 | XMS_ITS | Clinical Summary ---
Author Organization [facility] Address [address] [place] [phone] Phone Care Team Providers Care Landscaping Crew Leader Name Role Phone Abelino Stoll MD Primary Care Provider Self-Referred, Patient Unavailable Unavailab le Allergies Active Allergy Reactions Criticality Noted Date Comments Animal Dander 01/10/2023 Hay Fever And Allergy Relief 024 House Dust 09/03/2023 Pollen Extracts 09/03/2023 Ragweed 01/10/2023 Medications LORATADINE ORAL Claritin Liqui-Gel Active fluticasone propion-salmet Kris (ADVAIR DISKUS) 100-50 mcg/dose DISKUS 01/07/20 20 Active tadalafiL (CIALIS) 5 MG tablet Take 1 tablet by mouth every morning. 02/21/20 23 Active omeprazole (PRILOSEC) 20 MG capsule 1 capsule 30 minutes before morning meal Orally Once a day for 30 day(s) 05/09/19 24 Active albuterol 90 mcg/actuation inhaler TAKE 1 PUFF BY MOUTH 4 TIMES A DAY NEEDED FOR SHORTNESS OF BREATH 09/15/19 25 Active sildenafiL (VIAGRA) 100 mg tablet Take 1 tablet (100 mg total) by mouth daily as needed (erectile dysfunction). 10 tablet 11 11/21/19 25 Active sildenafiL (VIAGRA) 100 mg tablet Take 1 tablet (100 mg total) by mouth daily as needed. 10 tablet 11 09/03/19 24 025 Discontinued Active Problems Problem Noted Date Diagnosed Date Prostate cancer 09/19/2022 11/05/2022 Cancer Staging:Clinical stage from 07/24/2022:Stage IIC(cT1c, cN0, cM0, PSA: 14.7, Grade Group: 3, 07/24/22, [place]: 4, +: 3) - Signed by Giorgi Rodriguez MD on 02/08/2023 Encounters Date Type Department Care Team Description 11/20/2024 4:50 PM EDT Office Visit [facility] Urology [address] [place] [address] Grant Lobato MD Adenocarcinoma of prostate (Primary Dx) 11/16/2024 Orders Only [facility], [facility] [address] [place] [address] Percy Salinas MD Prostate cancer (Primary Dx) 11/02/2024 2:30 PM EDT Office Visit [facility] Genitourinary Oncology, [facility] [address] [place] [address] Percy Salinas MD Prostate cancer (Primary Dx) from Last 3 Months Family History Medical History Relation Comments Prostate cancer Neg Hx Social History Tobacco Use Types Packs/Day Years Used Date Smoking Tobacco: Never Smokeless Tobacco: Never Tobacco Cessation:Counseling Given: Not Answered Child or Family Care Answer Date Record ed Do you have problems with on e of the following making it difficult for you to work, study, or receive health care? No 02/05/2023 Education Answer Date Recorded Are you interested in help w ith more adult education (for example, completing high school, GED, job training, learning the [place]ian language, technical skills, or developing parenting skills)? No 02/05/2023 Are you concerned about learning? Not on file 02/05/2023 No 02/05/2023 Yes 02/05/2023 Food Answer Date Recorded Within the past 6 months we worried whether our food would run out before we got money to buy more. Never True 02/05/2023 Within the past 6 months the food we bought just didn't last and we didn't have enough money to get more. Never True Residential Stability Answer Date Recor ded What is your housing situation today? I have sabiha sing 02/05/2023 How many times have you move d in the past 12 months? Zero (I did not move) 02/05/2023 Paying for Meds Answer Date Recorded Do you have trouble paying for medicines? No 02/05/2023 Paying Utility Bills Answer Date Record ed Do you have trouble paying your heating or elect ricity bill? No 02/05/2023 Transportation Answer Date Recorded Has the lack of transportati on kept you from medical appointments or from getting medications? No 02/05/2023 Digital Access Answer Date Recorded No 09/28/2022 No 09/28/2022 Reliable internet access at home? Not on file 09/28/2022 Device with a working camera? Not on file Sex and Gender Information Value Date Recorded Sex Assigned at Male 12/25/2022 10:04 AM EDT Legal Sex Male 9:02 AM EDT Gender Identity Male 12/25/2022 10:04 AM EDT Sexual Orientation Straight 12/25/2022 10 :04 AM EDT Last Filed Vital Signs Vital Sign Reading Time Taken Comments Blood Pressure 130/72 11/20/2024 4:11 PM EDT Pulse 82 11/20/2024 4:11 PM EDT Temperature 36.1 C (97 F) 11/02/2024 1:23 PM EDT Respiratory Rate 18 11/02/2024 1:23 PM EDT Oxygen Saturation 97% 11/02/2024 1:26 PM EDT Inhaled Oxygen Concentration - - Weight 97.1 kg (214 lb) 11/20/2024 4:11 PM EDT Height 177.8 cm (5' 10 ) 11/20/2024 4:11 PM EDT Body Mass Index 30.71 11/20/2024 4:11 PM EDT Plan of Treatment Upcoming Encounters Date Type Department Care Team (Late st Contact Info) Description 02/25/2025 12:30 PM EST Blood Draw [facility] Imaging [facility], [facility], [facility] [address] [place] [address] Percy Salinas MD [address] [place] [address] [email or web address] 02/25/2025 2:15 PM EST Appointment [facility] Imaging Department, [facility], PET/CT [address] [place] [address] Percy Salinas MD [address] [place] [address] [email or web address] 03/01/2025 2:30 PM EST Office Visit [facility], [facility] [address] [place] [address] Percy Salinas MD [address] [place] [id number] [email or web address] Health Maintenance Due Date Last Done Comments Adult Td,Tdap Booster 1965 LIPID PANEL 1965 HEPATITIS C SCREENING 1982 HIV ONE-TIME SCREENING (18-65 YEARS) 1982 COLOGUARD 2009 COLONOSCOPY 2009 COLORECTAL CANCER SCREENING 2009 FIT TEST 2009 FOBT 2009 SIGMOIDOSCOPY 2009 VIRTUAL COLONOSCOPY 2009 PNEUMOCOCCAL VACCINES (50+ years) (2 of 2 - PCV) 03/22/2021 03/22/2020 DEPRESSION SCREENING 01/04/2024 01/03/2023 INFLUENZA VACCINE (#1) 2024 , 01/01/2023, 01/23/2022, Additional history exists SCREENING FOR DIABETES 09/26/2026 09/27/2023 RSV VACCINE (1 - 1-dose 75+ series) 08/03/2039 ZOSTER VACCINES Completed 06/16/2020, 03/22/2020 COVID-19 VACCINE Completed 01/07/2024, , 01/23/2022, Additional history exists SMOKING STATUS SCREENING (Once After 26 Yrs) Completed 11/20/2024 HEPATITIS A VACCINES Aged Out No long er eligible based on patient's age to complete this topic HIB VACCINES Aged Out No longer eligi ble based on patient's age to complete this topic MENINGOCOCCAL VACCINES (ACWY) Aged Out No longer eligible based on patient's age to complete this topic MENINGOCOCCAL VACCINES (B) Aged Out N o longer eligible based on patient's age to complete this topic Medical Devices Not on file Procedures Procedure Name Priority Date/Time Associated Diagnosis Comments PSA DIAGNOSTIC (MONITORING) Routine 11/02/2024 1:20 PM EDT Prostate cancer from Last 3 Months Results * PSA diagnostic (monitoring) (11/02/2024 1:20 PM EDT) PSA Monitoring 0.06 0.00 - 4.00 ng/mL [facility] LIC# [id number] Blood 11/02/2024 1:20 PM EDT 11/02/2024 1:29 PM EDT us Percy Salinas MD LAB BLOOD ORDERABLES Final Resul t [facility] LIC# [id number] [address] [place] [address] from Last 3 Months Insurance [facility] OUT OF STATE PPO [employer] OUT OF STATE PPO [employer] OUT OF STATE PPO BL[employer]OSS OUT OF STATE PPO [facility] OUT OF STATE PPO [employer] OUT OF STATE PPO Care Teams Landscaping Crew Leader Relationship Specialty Start Date End Date Abelino Stoll MD [address] [place] [address] [place] [address] PCP - General Internal Medicine 12/25/22 Self-Referred, Patient 01/11/23 Additional Source Comments The information contained in this document represents components of the legal health record. It is not the complete legal health record.[facility]
--- OUTSIDE RECORDS SUMMARY | 2024-12-16 18:08 | XMS_ITS | Patient Health Record ---
Author Organization [facility] Address [address] [place] [address] Care Team Providers Care Machinist Supervisor Name Role Phone Jerman (RETIRED) Abelino BOATENG Primary Care Provide Micah Fulton Jr Unavailable Allergies Allergen (clinical drug ingredient) Drug/Non Drug Allergy documented on EMR Reaction Allergy Type Onset Date Status seasonal (uncoded) Unknown Allergy A ctive Reason For Referral No Information Medications Medication SIG (Take, Route, Frequency, Duration) Notes Start Date End Date Status Tadalafil 5 MG Oral for 30 Act isa Advair Diskus 250-50 MCG/DOSE 1 puff Inhalation Twice a day/PRN Active Claritin 10 MG 1 tablet Orally Once a day for 30 day(s) Active Omeprazole 20 MG 1 capsule 30 minutes before morning meal Orally Once a day for 30 day(s) 05/09/2023 Active Immunizations Vaccine Route Administration Date Status Comme nts Influenza Unknown 03/08/2023 Administered Social History Alcohol Screen Question Answer Notes Did you [...] Never (0 point) Points 5 Interpretation Positive Problems Problem Type SNOMED Code ICD Code Onset Dates Problem Status W/U Status Risk Notes Problem 082706834 Colon cancer screening (Z12.11) Active confirmed Problem 442707929 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 Problem Gastroesophageal reflux disease (809646896) Gastroesophageal reflux disease (K21.9) Active confirmed Problem 20717989 Heme positive stool (R19.5) Active confirmed Problem 73081356 Change in bowel movement (R19.8) Active confirmed Problem 937959200 Gastroesophageal reflux disease, unspecified whether esophagitis present (K21.9) Active confirmed Vital Signs Blood pressure diastolic 00 mm Hg 01/02/2024 Height 69.5 in 01/02/2024 Blood pressure systolic 00 mm Hg 01/02/2024 Weight 222 lbs 01/02/2024 BMI 32.31 kg/m2 01/02/2024 Encounters Encounter Location Date Provider Diagnosis [facility] [address] [place] [address] 01/02/2024 Micah Baxter Jr Jacinto's esophagus without dysplasia K22.70 and Colon cancer screening Z12.11 Assessments Encounter Date Diagnosis (ICD Code) Assessment Notes Treatment Notes Treatment Clinical Notes Section Notes 01/02/2024 Colon cancer screening (ICD-10 - Z12.11) Currently, he is doing well. We discussed diet, lifestyle modifications, and weight management regarding the treatment of reflux. He will continue omeprazole. We discussed the natural history of Jacinto's esophagus. He will followup in one year. He is up-to-date on colon cancer screening. 01/02/2024 Jacinto's esophagus without dysplasia (ICD-10 - K22.70) Jacinto esophagus material was printed Currently, he is doing well. We discussed diet, lifestyle modifications, and weight management regarding the treatment of reflux. He will continue omeprazole. We discussed the natural history of Jacinto's esophagus. He will followup in one year. He is up-to-date on colon cancer screening. Plan Of Treatment Future Test Test Name Order Date COLONOSCOPY 08/05/2014 UPPER GI ENDOSCOPY 03/25/2023 COLONOSCOPY 03/25/2023 Next Appt Details Provider Name:Micah shipley Jr, 01/04/2025 09:00:00 AM, [address], [address], [place], [address], Insurance Providers Payer Name Payer Address Payer Phone Subscriber Number Group Number Insured Name Patient Relationship to Insured Coverage Start Date Coverage End Date [facility] [address] [place], [place] [id number] [phone] [id number] AWA JACOBS Self - patient is the insured Medical (General) History Medical History History ICD Code Asthma Gastroesophageal reflux dise ase, EGD 05/01, 2 cm length of Jacinto's esophagus, two-year EGD recall, no dysplasia Colonoscopy 04/30/23, normal, five-year followup for family history of colon polyps Prostate cancer Surgical History Surgery Date(Month/Year) Repair of facial bone fracture Prostatectomy 12/2022
== END 2024-12-16 15:56 | disposition home or self-care (01) ==
LOC: HO.HMCHD 15:02
PROVIDERS: PCP Internal Medicine; Visit Provider Physician Assistant
DX: H53.9 Unspecified visual disturbance (principal); E78.5 Hyperlipidemia, unspecified

== ENCOUNTER 2024-12-18 07:46 | Outpatient (REF) | payer BC, SELFPAY ==
--- OUTSIDE RECORDS SUMMARY | 2023-09-18 06:40 | XMS_ITS ---
Author Organization [facility] Address [address] [place] [address] Care Team Providers Care Authorization Rep Name Role Phone Jerman (RETIRED) Abelino BOATENG Primary Care Provide r Micah Hernandez Jr REASON FOR VISIT Patient presents today for barretts esophagus Encounters Encounter Location Date Provider Diagnosis [facility] [address] [place] [address] 09/18/2023 Micah Baxtre Jr Plan Of Treatment Next Appt Details Provider Name:Micah shipley Jr, 01/04/2025 09:00:00 AM, [address] [place] [address], [address], [place], [address], Progress Notes * AWA JACOBSDOB:1965 (59 yo M)Acc No.[id number]:09/18/2023 Progress Notes Patient: AWA RUSSELL Provider: Yumi Baxter MD :1965 A ge:58 Y S ex:Male Date:09/18/2023 Address:[address] [place] [address] [id number] Pcp:Abelino Stoll (RETIRED )MD Subjective: * Chief Complaints: * 1 . Patient presents today for barretts esophagus. * Medical History: Objective: * Vitals: Assessment: Plan: * Treatment: * * The named appointment provid er may or may not be the originator of this progress note, and it is not deemed complete until electronically signed by the appointment provider. Sign off status: Pending * Provider: Yuim Baxter MD Date: 0 09/18/2023 Generated for Natalya amaral/Neva/Mateus on: 0 12/18/2024 07:47 AM EDT
--- OUTSIDE RECORDS SUMMARY | 2024-12-18 07:48 | XMS_ITS | Patient Health Record ---
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 Problem Gastroesophageal reflux disease (366680410) Gastroesophageal reflux disease (K21.9) Active confirmed Problem 52584552 Heme positive stool (R19.5) Active confirmed Problem 41424671 Change in bowel movement (R19.8) Active confirmed Problem 254557874 Gastroesophageal reflux disease, unspecified whether esophagitis present (K21.9) Active confirmed Vital Signs Blood pressure diastolic 00 mm Hg 01/02/2024 Height 69.5 in 01/02/2024 Blood pressure systolic 00 mm Hg 01/02/2024 Weight 222 lbs 01/02/2024 BMI 32.31 kg/m2 01/02/2024 Encounters Encounter Location Date Provider Diagnosis [facility] [address] [place] [address] 01/02/2024 Micah Baxter Jr Jacinto's esophagus without [...] Name:Micah shipley Jr, 01/04/2025 09:00:00 AM, [address], [address], [place], [address], Insurance Providers Payer Name Payer Address Payer Phone Subscriber Number Group Number Insured Name Patient Relationship to Insured Coverage Start Date Coverage End Date [facility] [address] [place], [place] [id number] [phone] [id number] AWA JACOBS Self - patient is the [...]
--- OUTSIDE RECORDS SUMMARY | 2024-12-18 07:48 | XMS_ITS | Clinical Summary ---
Author Organization [facility] Address [address] [place] [address] Phone Care Team Providers Care Addiction Social Worker Name Role Phone Abelino Stoll MD Primary [...] cM0, PSA: 14.7, Grade Group: 3, 07/24/22, [place]: 4, +: 3) - Signed by Giorgi Rodriguez MD on 02/08/2023 Encounters Date Type Department Care Team Description 11/20/2024 4:50 PM EDT Office Visit [facility] Urology [address] [place] [address] Grant Lobato MD Adenocarcinoma of prostate (Primary Dx) 11/16/2024 Orders Only [facility] for Gen[facility]our[facility] Oncology, [facility] [address] [place] [address] Percy Salians MD Prostate cancer (Primary Dx) 11/02/2024 2:30 PM EDT Office Visit [facility] Genitourinary Oncology, [facility] [address] [place] [address] Percy Salinas MD Prostate cancer (Primary Dx) [...] high school, GED, job training, learning the Austrian language, technical skills, or developing parenting skills)? [...] Description 02/25/2025 12:30 PM EST Blood Draw Ilna Lank Imaging Department, [facility], Imaging [facility] [address] [place] [address] Percy Salinas MD [address] [place] [address] [email or web address] 02/25/2025 2:15 PM EST Appointment Lina Griffiths Imaging Department, [facility], PET/CT [address] [place] [address] Percy Salinas MD [address] [place] [address] [email or web address] 03/01/2025 2:30 PM EST Office Visit [facility] for [facility] On[facility], [facility] [address] [place] [address] Percy Salinas MD [address] [place] [address] [email or web address] Health Maintenance Due Date Last Done Comments [...] PSA Monitoring 0.06 0.00 - 4.00 ng/mL [facility] LIC# [id number] Blood 11/02/2024 1:20 PM EDT 11/02/2024 1:29 PM EDT us Percy Salinas MD LAB BLOOD ORDERABLES Final Resul t [facility] LIC# [id number] [address] [place] [address] from Last 3 Months Insurance [facility] OUT OF STATE PPO [employer]UE CROSS OUT OF STATE PPO [employer] OUT OF STATE PPO BLUE [employer]OSS OUT OF STATE PPO [facility] OUT OF STATE PPO [employer] OUT OF STATE PPO Care Teams Addiction Social Worker Relationship Specialty Start Date End Date Abelino Stoll MD [address] [place] [address] [place] [address] PCP - General Internal Medicine 12/25/22 Self-Referred, Patient 01/11/23 Additional Source Comments The information contained in this document represents components of the legal health record. It is not the complete legal health record.[facility]
== END 2024-12-18 07:47 | disposition home or self-care (01) ==
LOC: HO.10HDL 07:46
PROVIDERS: Visit Provider Physician Assistant
DX: H53.9 Unspecified visual disturbance (principal); H50.9 Unspecified strabismus
CPT/HCPCS: 36415; 84443

== ENCOUNTER → 2025-01-20 18:42 | Outpatient (BNV) | payer BC, SELFPAY | PROVIDERS: PCP Physician Assistant; Visit Provider Radiology Diagnostic Radiology | DX: H53.47 Heteronymous bilateral field defects (principal) | CPT/HCPCS: 70551 ==

== ENCOUNTER 2025-01-20 18:43 | Outpatient (REF) | payer BC, SELFPAY ==
--- OUTSIDE RECORDS SUMMARY | 2023-09-18 06:40 | XMS_ITS ---
Author Organization [facility] Address [address] [place] [address] Care Team Providers Care Maintenance Department Technician Name Role Phone RAGHAV UP Primary Care Provider Micah Smith Jr [phone] REASON FOR VISIT Patient presents today for barretts esophagus Encounters Encounter Location Date Provider Diagnosis [facility] [address] [address] 09/18/2023 Micah Baxter Jr Plan Of Treatment Next Appt Details Provider Name:Micah shipley Jr, 04/13/2025 07:30:00 AM, [address] [place] [address] , [place], [place], [phone], Progress Notes * AWA JACOBSDOB:1965 (59 yo M)Acc No.[id number]:09/18/2023 Progress Notes Patient: AWA RUSSELL Provider: Yumi Baxter MD :1965 A ge:58 Y S ex:Male Date:09/18/2023 Address:[address] [place] [address] [id number] Pcp:RAGHAV UP Subjective: * Chief Complaints: * 1 . [...] 0 09/18/2023 Generated for Natalya amaral/Neva/Mateus on: 1 07:37 PM EDT
--- OUTSIDE RECORDS SUMMARY | 2025-01-04 05:00 | XMS_ITS ---
Author Organization [facility] Address [address] [place] [address] Care Team Providers Care Date Puller Name Role Phone RAGHAV UP Primary Care [...] 01/04/2025 Encounters Encounter Location Date Provider Diagnosis [facility] [address] [place] [address] 01/04/2025 Micah Baxter Jr Menjivar's esophagus without dysplasia K22.70 Assessments Encounter Date Diagnosis (ICD Code) Assessment Notes Treatment Notes Treatment Clinical Notes Section Notes 01/04/2025 Menjivar's esophagus without dysplasia (ICD-10 - K22.70) Plan Of Treatment Future Test Test Name Order Date UPPER GI ENDOSCOPY 01/04/2025 Next Appt Details Provider Name:Micah shipley Jr, 04/13/2025 07:30:00 AM, [address] [place] [address] , [place], [place], [phone], Progress Notes * KELLEN JACOBSDOB:1965 (59 yo M)Acc No.[id number]:01/04/2025 Progress Notes Patient: KELLEN RUSSELL Provider: Yumi Baxter MD :1965 A ge:59 Y S ex:Male Date:01/04/2025 Address:[address] [place] [address] [place] Pcp:RAGHAV UP Subjective: * Chief Complaints: * [...] iscellaneous: M arital status: . 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 * Medications: T aking Claritin 10 MG [...] ietary management education, guidance, and counseling, B [place] management provided Y es. * * The named appointment provid er may or may not be the originator of this progress note, and it is not deemed complete until electronically signed by the appointment provider. Sign off status: Pending * Provider: Yumi Baxter MD Date: 0 01/04/2025 Generated for Natalya amaral/Neva/Mateus on: 1 07:38 PM EDT
--- NOTE | ~2025-01-20 | MR_ITS ---
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 COMPARISON: None available. TECHNIQUE: MRI of the brain was obtained using routine sequences without contrast. FINDINGS: No restricted diffusion. No acute intracranial hemorrhage, mass effect, midline shift, hydrocephalus or herniation. Vidal-white matter differentiation is normal. Sellar/suprasellar region demonstrated CSF prominence suggesting diaphragmatic sella insufficiency no gross masses or signal abnormality. Posterior cranial fossa contents demonstrated no signal abnormality or mass effect. Normal position of the cerebellar tonsils. Flow-void signal within the main cerebral vessels is normal. Bilateral, a few, scattered, nonspecific subcortical white matter hyperintense T2 FLAIR signal foci bifrontal lobes. MR/MR head/brain wo con IMPRESSION: No acute stroke/nonhemorrhagic ischemia. No gross masses or signal abnormality in the sellar suprasellar region. If clinical concern recommend MRI evaluation of the optic pathways.. Electronically signed by: Girish Chan MD 01/21/2025 07:07 AM EDT
--- OUTSIDE RECORDS SUMMARY | 2025-01-20 19:38 | XMS_ITS | Clinical Summary ---
Author Organization [facility] Address [address] [place] [address] Phone Care Team Providers Care Forestry Laborer Name Role Phone Abelino Stoll MD Primary Care Provider Self-Referred, Patient Unavailable Unavailab le Allergies Active Allergy Reactions Criticality Noted Date Comments Animal Dander 01/10/2023 Hay Fever And Allergy Relief 024 House Dust 09/03/2023 Pollen Extracts 09/03/2023 Ragweed 01/10/2023 Medications LORATADINE ORAL Claritin Liqui-Gel Active fluticasone propion-salmete roL (ADVAIR DISKUS) 100-50 mcg/dose DISKUS 0 Active tadalafiL (CIALIS) 5 MG tablet Take 1 tablet by mouth every morning. 3 Active omeprazole (PRILOSEC) 20 MG capsule 1 capsule 30 minutes before morning meal Orally Once a day for 30 day(s) 4 Active albuterol 90 mcg/actuation inhaler TAKE 1 PUFF BY MOUTH 4 TIMES A DAY NEEDED FOR SHORTNESS OF BREATH 5 Active sildenafiL (VIAGRA) 100 mg tablet Take 1 tablet (100 mg total) by mouth daily as needed (erectile dysfunction). 10 tablet 11 5 Active Active Problems Problem Noted Date Diagnosed Date Prostate cancer 09/19/2022 11/05/2022 Cancer Staging:Clinical stage from 07/24/2022:Stage IIC(cT1c, cN0, cM0, PSA: 14.7, Grade Group: 3, 4, Danielle: 4, +: 3) - Signed by Giorgi Rodriguez MD on 02/08/2023 Encounters Date Type Department Care Team Description 11/20/2024 4:50 PM EDT Office Visit [facility] Urology [address] [place] [address] Grant Lobato MD Adenocarcinoma of prostate (Primary Dx) 11/16/2024 Orders Only [facility] for Genitourinary On[facility], [facility] [address] [place] [address] Percy Salinas MD Prostate cancer (Primary Dx) 11/02/2024 2:30 PM EDT Office Visit [facility], [facility] [address] [place] [address] Percy Salinas MD Prostate cancer (Primary Dx) [...] high school, GED, job training, learning the Maltese language, technical skills, or developing parenting skills)? [...] your housing situation today? I have sabiha morales 02/05/2023 How many times have you move [...] 02/25/2025 12:30 PM EST Blood Draw Lina Griffiths Imaging Department, [facility], Imaging [facility] [address] [place] [address] Percy Salinas MD [address] [facility] [address] [place] [address] [email or web address] 02/25/2025 2:15 PM EST Appointment Lina Griffiths Imaging Department, [facility], PET/CT [address] [place] [address] Percy Salinas MD [address] [facility] [address] [place] [id number] [email or web address] 03/01/2025 2:30 PM EST Office Visit [facility], [facility] [address] [place] [address] Percy Salinas MD [address] [facility] [address] [place] [id number] [email or web address] Health Maintenance Due Date Last Done [...] 2024 , 01/01/2023, 01/23/2022, Additional history exists COVID-19 VACCINE ( - 2024- season) 2024 01/07/2024, 01/01/2023, 01/23/2022, Additional history exists SCREENING FOR DIABETES 09/26/2026 09/27/2023 RSV VACCINE (1 - 1-dose 75+ series) 08/03/2039 ZOSTER VACCINES Completed 06/16/2020, 03/22/2020 SMOKING STATUS SCREENING (Once After 26 Yrs) [...] PSA Monitoring 0.06 0.00 - 4.00 ng/mL [facility] LIC# [id number] Blood 11/02/2024 1:20 PM EDT 11/02/2024 1:29 PM EDT us Percy Salinas MD LAB BLOOD ORDERABLES Final Resul t [facility] LIC# [id number] [address] [place] [address] from Last 3 Months Insurance [place], [place] BLUE [place] OUT OF STATE PPO BLUE [place]OSS OUT OF STATE PPO [place] OUT OF STATE PPO [facility] OUT OF STATE PPO [employer]UE [employer] OUT OF STATE PPO Care Teams Forestry Laborer Relationship Specialty Start Date End Date Abelino Stoll MD [address] [place] [address] [place] [address] PCP - General Internal Medicine 12/25/22 Self-Referred, Patient 01/11/23 Additional Source Comments The information contained in this document represents components of the legal health record. It is not the complete legal health record.[facility]
== END 2025-01-20 18:44 | disposition home or self-care (01) ==
LOC: HO.MRI 18:43
PROVIDERS: PCP Physician Assistant; Visit Provider Physician Assistant
DX: H50.9 Unspecified strabismus (principal); H53.9 Unspecified visual disturbance; H53.47 Heteronymous bilateral field defects
CPT/HCPCS: 70551

== ENCOUNTER 2025-02-03 14:08 | Outpatient (AMB) | payer BC, SELFPAY ==
--- OUTSIDE RECORDS SUMMARY | 2023-09-18 06:40 | XMS_ITS ---
Author Organization [facility] Address [address] [place] [address] Care Team Providers Care Marketing Strategy Analyst Name Role Phone RAGHAV UP Primary Care Provider Micah Smith Jr [phone] REASON FOR VISIT Patient presents today for barretts esophagus Encounters Encounter Location Date Provider Diagnosis [facility] [address] [address] 09/18/2023 Micah Baxter Jr Plan Of Treatment Next Appt Details Provider Name:Micah shipley Jr, 04/13/2025 07:30:00 AM, [address] [place] [address] , [place], [place], [phone], Progress Notes * AWA JACOBSDOB:1965 (59 yo M)Acc No.[id number]:09/18/2023 Progress Notes Patient: AWA RUSSELL Provider: Yumi Baxter MD :1965 A ge:58 Y S ex:Male Date:09/18/2023 Address:[address] [place] [address] [id number] Pcp:RAGHAV UP Subjective: * Chief Complaints: * [...] 09/18/2023 Generated for Natalya amaral/Neva/Mateus on: 1 06:14 PM EDT
--- OUTSIDE RECORDS SUMMARY | 2025-01-04 05:00 | XMS_ITS ---
Author Organization [facility] Address [address] [place] [address] Care Team Providers Care Carpet Weaver Name Role Phone RAGHAV UP Primary Care Provider Micah Smith Jr Unavailable Allergies Allergen (clinical drug ingredient) Drug/Non Drug Allergy documented on EMR Reaction Allergy Type Onset Date Status seasonal (uncoded) Unknown Allergy A ctive REASON FOR VISIT Patient presents today for MENJIVAR'S Medications Medication SIG (Take, Route, Frequency, Duration) Notes Start Date End Date Status Lipitor 10 MG 1 tablet Orally Once a day; Duration: 30 day(s) 01/04/2025 Active Omeprazole 20 MG 1 capsule 30 minutes before morning meal Orally Once a day; Duration: 30 day(s) 05/09/2023 Active Tadalafil 5 MG Oral; Duration: 30 Active Advair Diskus 250-50 MCG/DOSE 1 puff Inhalation Twice a day/PRN Active Claritin 10 MG 1 tablet Orally Once a day; Duration: 30 day(s) Active Social History Alcohol Screen Question Answer Notes [...] Never (0 point) Points 5 Interpretation Positive Vital Signs Temperature 97.8 degrees Fahrenheit 01/05/20 25 Blood pressure systolic 001 mm Hg 01/05/20 25 Blood pressure diastolic 01 mm Hg 025 Height 69.5 in 01/04/2025 Weight 219.6 lbs 01/04/2025 BMI 31.96 kg/m2 01/04/2025 Encounters Encounter Location Date Provider Diagnosis [facility] [address] [place] [address] 01/04/2025 Micah Baxter Jr Menjivar's esophagus without dysplasia K22.70 Assessments Encounter Date Diagnosis (ICD Code) Assessment Notes Treatment Notes Treatment Clinical Notes Section Notes 01/04/2025 Menjivar's esophagus without dysplasia (ICD-10 - K22.70) Plan Of Treatment Future Test Test Name Order Date UPPER GI ENDOSCOPY 01/04/2025 Next Appt Details Provider Name:Micah shipley Jr, 04/13/2025 07:30:00 AM, [address] [place] [address] , [place], [place], [phone], Progress Notes * KELLEN JACOBSDOB:1965 (59 yo M)Acc No.[id number]:01/04/2025 Progress Notes Patient: KELLEN RUSSELL Provider: Yumi Baxter MD :1965 A ge:59 Y S ex:Male Date:01/04/2025 Address:[address] [place] [address] [place] Pcp:RAGHAV UP Subjective: * Chief Complaints: * 1 . Patient presents today for MENJIVAR'S. * Medical History: A sthma, Gastroesophageal reflux disease, EGD 05/01, 2 cm length of Menjivar's esophagus, two-year EGD recall, no dysplasia, Colonoscopy 04/30/23, normal, five-year followup for family history of colon polyps, Prostate cancer, Eyes weren't in unison. * Surgical History: R epair of facial bone fracture , Prostatectomy 12/2022. * Family History: F ather: , diagnosed with Colon polyps. M other: alive. No family history of colon cancer or liver cancer. * Social History: T obacco Use: T obacco Use/Smoking A re you a: nonsmoker. D rugs/Alcohol: A lcohol Screen D id you have a drink containing alcohol in the past year? Y es, H ow often did you have a drink containing alcohol in the past year? 4 or more times a week (4 points), H ow many drinks did you have on a typical day when you were drinking in the past year??3 or 4 drinks (1 point), H ow often did you have 6 or more drinks on one occasion in the past year? N ever (0 point), P oints 5 , I nterpretation P ositive. M iscellaneous: M arital status: . 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 * Medications: T aking Claritin 10 MG Tablet 1 tablet Orally Once a day , Taking Advair Diskus 250-50 MCG/DOSE Aerosol Powder Breath Activated 1 puff Inhalation Twice a day/PRN , Taking Tadalafil 5 MG Tablet Oral , Taking Omeprazole 20 MG Capsule Delayed Release 1 capsule 30 minutes before morning meal Orally Once a day , Taking Lipitor 10 MG Tablet 1 tablet Orally Once a day * Allergies: S easonal. Objective: * Vitals: W t:219.6lbs, Ht: 69.5 in, BMI:31.96Index, BP:001/01mm Hg, Temp:97.8, Wt-k.61. Assessment: * Assessment: 1. B arrett's esophagus without dysplasia - K22.70 (Primary) Plan: * Treatment: * Preventive Medicine: Counseling: C are goal follow-up plan: A deandre Normal BMI Follow-up D ietary management education, guidance, and counseling, B WA management provided Y es. * * The named appointment provid er may or may not be the originator of this progress note, and it is not deemed complete until electronically signed by the appointment provider. Sign off status: Pending * Provider: Yumi Baxter MD Date: 0 01/04/2025 Generated for Natalya amaral/Neva/Mateus on: 06:14 PM EDT
--- NOTE | 2025-02-03 14:02 | MHC.PC.OV ---
Vital Signs 02/03/25 14:24 Height 5 ft 10 in Weight 99.337 kg BMI 31.4 BP 126/68 Blood Pressure Location Lt brachial Position Sitting Respiration 18 Pulse 80 Pulse Source Pulse Oximeter Temp 98 F Temp Source Temporal Artery Scan Pulse Oximetry (%) 98 Oxygen Delivery Method Room Air Intake Visit Reasons: Eye & MRI f/u Editorial Manager Required: No Accompanied by: Self / Same As Patient Allergies Seasonal Allergies Allergy (Intermediate, Verified 02/03/25 14:02) Itchy Eyes Medication List - Last Reconciled 02/03/25 by NERY Collado albuterol sulfate 90 mcg/actuation 1 inh inhalation QID PRN atorvastatin (Lipitor) 10 mg PO DAILY fluticasone propion-salmeterol 100-50 mcg/dose (Wixela Inhub) 1 ea inhalation BID loratadine (Claritin) 10 mg PO DAILY sildenafil 100 mg PO DAILY PRN Tobacco use date assessed: 02/03/25 Dental Screening Dental Screen Date: 02/03/25 Did you have a dental visit in the last 12 months?: Yes Did you have a dental problem in the last 6 months where you did not have access to dental care?: No Was dental information given to patient?: Patient has dentist HPI HPI Comments History of Present Illness Details 59-year-old male with history of prostate cancer, asthma, GERD presents to the office today for management of evaluation accompanied by his Kimberley. Prostate cancer- s/p total prostatectomy 2022. Following with [facility] 4 times yearly. Last 0.03. Interductal carcinoma. Asthma- stable on wixela inhaler. No recent exacerbation. Rare albuterol use. GERD- controlled. Takes omeprazole Hyperlipidemia-last LDL 103, goal less than 70 in case of TIA. Started on atorvastatin 10 mg daily Concerns: He was evaluated in early December for an episode where experienced an episode where his eyes were looking in different directions , seeing things in two different barrientos . When covering each of the vision in the contralateral eye was normal. Unclear if there was actually central vision loss. No peripheral vision loss. When walking he states he had to cover one of his eyes. Reports the episode lasted about 5-6 minutes and has not recurred. This was the initial episode. He denies any blurred vision, diplopia, vision loss, pain with EOM. Denies any loss of depth perception. No other focal deficits. No hx CVA or known. At that time he was covered with aspirin and atorvastatin in event that this was a TIA. MRI of the brain was ordered which did not show any evidence of intracranial hemorrhage or ischemia or any evidence of tumors or other structural abnormality including with the cranial nerves that could be causing his symptoms. He was then evaluated by Ophthalmology who stated the visual barrientos did not show any losses of homonymous hemianopsia. However she did note alternating phoria entropion in testing of eye movements and was not previously present. He was referred to a neurologist/physician underwriter, Dr. Lambert Dasilva for further evaluation and management. There have not been any recurrent episodes ROS: See HPI EXAM: Constitutional - Awake and Alert, No apparent distress Eyes - PERRL Cardiovascular - S1S2, RRR, No edema Respiratory - Normal lung expansion, Normal respiratory effort, No respiratory distress, CTA bilaterally Extremities - no calf tenderness bilaterally, no swelling Skin - Warm/Dry Neurological - Alert & oriented x3 Psychological - Appropriate affect PFSH Medical History (Updated 02/03/25 @ 15:03 by NERY Collado) Hyperlipidemia Prostate cancer Asthma GERD (gastroesophageal reflux disease) Surgical History (Updated 09/11/24 @ 15:42 by Jocy Tapia) History of facial surgery Hx of prostatectomy H/O colonoscopy (~04/30/23) Social History Household Members: Spouse Housing: House Patient Tobacco Use Status: Never used Tobacco e-Cigarette/Vaping Use: Never Used service: No Current occupational status: employed Current occupation: [employer] Questionnaire Thrive Questionnaire Date Thrive assessed: 09/14/24 AUDIT C Alcohol Use Questionnaire (AUDIT-C) 1. How often do you have a drink containing alcohol?: 2-3 times a week 2. How many drinks containing alcohol do you have on a typical day when you are drinking?: 1 or 2 3. How often do you have six or more drinks on one occasion?: Never Total Score: 3 BALDEMAR-7 AMB Questionnaire BALDEMAR-7 Date BALDEMAR - 7 assessed: 09/14/24 Source: Developed by Drs. Kenny Soriano, Sheree Randle, Hernan Novak and colleagues, with an educational blaire from [employer]. Physical exam (Primary Care) Vital Signs: Last Vital Signs Temp 98 F 02/03/25 14:24 Pulse 80 02/03/25 14:24 Resp 18 02/03/25 14:24 BP 126/68 02/03/25 14:24 Pulse Ox 98 02/03/25 14:24 Oxygen Delivery Method Room Air 02/03/25 14:24 BMI result Body Mass Index 31.4 Tobacco/Smoking Status: Tobacco use Status Tobacco use date assessed 02/03/25 02/03/25 14:26 Patient Tobacco Use Status Never used Tobacco 02/03/25 14:03 e-Cigarette/Vaping Use Never Used 02/03/25 14:26 Thrive Assessment: Date of Thrive Assessment Date Thrive assessed 09/14/24 02/03/25 14:03 Coding Level of Care Code Est Pt Level 4 (58665) Diagnoses 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 Report notes alternating for a entropion that was new compared to priors. He is advised to follow-up neurologist/physician underwriter next week as scheduled. Reviewed MRI with the patient which is reassuring. Advised to inquire about following with our neurologist if needed in April. (2) Change in vision: Code(s): H53.9 - Unspecified visual disturbance Category: Medical Plan: See above. Recommend continuing aspirin and statin until evaluated by neuro physician underwriter (3) Hyperlipidemia: Code(s): E78.5 - Hyperlipidemia, unspecified Category: Medical Plan: Recheck lipid panel. Continue atorvastatin. Diet low in saturated fats and highly processed foods. Plan Follow-up for annual physical exam as scheduled Orders: Orders Lipid Panel Today E78.5 - Hyperlipidemia, unspecified
[2025-02-03 14:24] VITALS: BP 126/68; PULSE 80; RESP 18; TEMP 36.6; O2SAT 98; BMI 31.4
--- OUTSIDE RECORDS SUMMARY | 2025-02-03 18:14 | XMS_ITS | Clinical Summary ---
Author Organization [facility] Address [address] [place] [address] Phone Care Team Providers Care Afterschool Babysitter Name Role Phone Abelino Stoll MD Primary [...] Description 11/20/2024 4:50 PM EDT Office Visit [facility] [address] [place] [address] Grant Lobato MD Adenocarcinoma of prostate (Primary Dx) 11/16/2024 Orders Only [facility], [facility] [place] [address] [place] [address] Percy Salinas MD Prostate cancer (Primary Dx) [...] high school, GED, job training, learning the Cambodian language, technical skills, or developing parenting skills)? [...] your housing situation today? I have sabiha andrew 02/05/2023 How many times have you move [...] Description 02/25/2025 12:30 PM EST Blood Draw [facility], [facility], Imaging [id number] [address] [place] [address] Percy Salinas MD [address] [place] [address] [email or web address] 02/25/2025 2:15 PM EST Appointment [facility], [facility], PET/CT [address] [place] [address] Percy Salinas MD [address] [place] [address] [email or web address] 03/01/2025 2:30 PM EST Office [facility] [place] [address] [place] [address] Percy Salinas MD [address] [place] [address] [email or web address] Health Maintenance Due Date Last Done Comments [...] 01/01/2023, 01/23/2022, Additional history exists COVID-19 VACCINE (2024- season) 2024 01/07/2024, 01/01/2023, 01/23/2022, Additional history [...] this topic Medical Devices Not on file Insurance BLUE CROSS OUT OF STATE PPO BLUE CROSS OUT OF STATE PPO [place], [place] CROSS OUT OF STATE PPO [place] CROSS OUT OF STATE PPO BLUE CROSS OUT OF STATE PPO BL[employer] CROSS OUT OF STATE PPO Care Teams Afterschool Babysitter Relationship Specialty Start Date End Date Abelino Stoll MD [address] [place] [address] [place] [address] PCP - General Internal Medicine 12/25/22 Self-Referred, Patient 01/11/23 Additional Source Comments The information contained in this document represents components of the legal health record. It is not the complete legal health record.[facility]
--- OUTSIDE RECORDS SUMMARY | 2025-02-03 18:15 | XMS_ITS | Patient Health Record ---
Author Organization [facility] Address [address] [place] [address] Care Team Providers Care Asphalt Coater Name Role Phone DIAN GUEVARA Primary Care Provider Micah Smith Jr Unavailable Allergies Allergen (clinical drug ingredient) Drug/Non Drug Allergy documented on EMR Reaction Allergy Type Onset Date Status seasonal (uncoded) Unknown Allergy A ctive Results Component Value Reference Range Notes MR head/brain wo con Reviewed date:01/21/2025 08:05:03 AM Interpretation: Performing Lab: Notes/Report: [address] [address] Magnetic Resonance Report Signed Patient: Ellis Jacobs MR#: [id number] 9 : 1965 Acct:[id number] Age/Sex: 59 / M ADM Date: 01/20/25 Loc: HO.MRI Attending Dr: Dian GABRIEL Ordering Physician: Dian Guevara Date of Service: 01/20/25 Procedure(s): MR head/brain wo con Accession Number(s): [id number] cc: Micah Baxter MD; Lambert Dasilva MD; Dian Guevara Reason for Exam: H53.47 - Heteronymous bilateral field defects 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 COMPARISON: None available. TECHNIQUE: MRI of the brain was obtained using routine sequences without contrast. FINDINGS: No restricted diffusion. No acute intracranial hemorrhage, mass effect, midline shift, hydrocephalus or herniation. Vidal-white matter differentiation is normal. Sellar/suprasellar region demonstrated CSF prominence suggesting diaphragmatic sella insufficiency no gross masses or signal abnormality. Posterior cranial fossa contents demonstrated no signal abnormality or mass effect. Normal position of the cerebellar tonsils. Flow-void signal within the main cerebral vessels is normal. Bilateral, a few, scattered, nonspecific subcortical white matter hyperintense T2 FLAIR signal foci bifrontal lobes. MR/MR head/brain wo con IMPRESSION: No acute stroke/nonhemorrhagic ischemia. No gross masses or signal abnormality in the sellar suprasellar region. If clinical concern recommend MRI evaluation of the optic pathways.. Electronically signed by: Girish Chan MD 01/21/2025 07:07 AM EDT Dictated By: Girish Sy MD Signed By: <Electronically signed by Girish Jones MD in OV> 01/21/25 0707 DD/ 185 TD/TT: 01/20/25 1907 Strategic Communications Manager: Reason For Referral No Information Medications Medication [...] Once a day; Duration: 30 day(s) Active Immunizations Vaccine Route Administration Date Status Comme nts Influenza Unknown 03/08/2023 Administered Influenza Unknown 12/24/2023 Administered Social History Alcohol Screen Question Answer [...] Problem Status W/U Status Risk Notes Problem Colon cancer screening (970519218) Colon cancer screening (Z12.11) Active confirmed Problem Jacinto's esophagus (926187163) 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 Problem Gastroesophageal reflux disease (026140753) Gastroesophageal reflux disease (K21.9) Active confirmed Problem Abnormal feces (553080719) Heme positive stool (R19.5) Active confirmed Problem Altered bowel function (87400992) Change in bowel movement (R19.8) Active confirmed Problem Gastroesophageal reflux disease (312559619) Gastroesophageal reflux disease, unspecified whether esophagitis present (K21.9) Active confirmed Vital Signs Temperature 97.8 degrees Fahrenheit 01/04/2025 Blood pressure diastolic 01 mm Hg 01/04/2025 Height 69.5 in 01/04/2025 Blood pressure systolic 001 mm Hg 01/04/2025 Weight 219.6 lbs 01/04/2025 BMI 31.96 kg/m2 01/04/2025 Encounters Encounter Location Date Provider Diagnosis [facility] [address] [place] [address] 01/04/2025 Micah Baxter Jr Jacinto's esophagus without dysplasia K22.70 Assessments Encounter Date Diagnosis (ICD Code) Assessment Notes Treatment Notes Treatment Clinical Notes Section Notes 01/04/2025 Jacinto's esophagus without dysplasia (ICD-10 - K22.70) Plan Of Treatment Future Test Test Name Order Date COLONOSCOPY 08/05/2014 UPPER GI ENDOSCOPY 03/25/2023 COLONOSCOPY 03/25/2023 UPPER GI ENDOSCOPY 01/04/2025 Next Appt Details Provider Name:Micah shipley Jr, 04/13/2025 07:30:00 AM, [address] [place] [address] , [place], [place], [phone], Insurance Providers Payer Name Payer Address Payer Phone Subscriber Number Group Number Insured Name Patient Relationship to Insured Coverage Start Date Coverage End Date [facility] [address] [place], [place] [id number] ELLIS JACOBS Self - patient is the insured Medical (General) History Medical History History ICD Code Asthma Gastroesophageal reflux dise ase, EGD 05/01, 2 cm length of Jacinto's esophagus, two-year EGD recall, no dysplasia Colonoscopy 04/30/23, normal, five-year followup for family history of colon polyps Prostate cancer eyes weren't in [facility] Surgical History Surgery Date(Month/Year) Prostatectomy 12/2022 Repair of facial bone fracture
== END 2025-02-03 16:40 | disposition home or self-care (01) ==
LOC: HO.HMCHD 14:09
PROVIDERS: PCP Physician Assistant; Visit Provider Physician Assistant
DX: H50 Other strabismus (principal); H53.9 Unspecified visual disturbance; E78.5 Hyperlipidemia, unspecified